=== PATIENT | female | born 1965 | race Caucasian/White ===

== ENCOUNTER 2019-01-02 13:06 | Emergency (ER) | payer MEDICAID, SELFPAY ==
[2019-01-02 13:07] VITALS: BP 146/81; PULSE 74; RESP 18; TEMP 36.8; O2SAT 98; BMI 29.8
--- NOTE | 2019-01-02 13:35 | RAD_ITS ---
STUDY: X-RAY - LEFT KNEE REASON FOR EXAM: Pain, fall. TECHNIQUE: 4 view(s) of the knee. COMPARISON: None. FINDINGS: Normal visualized distal femur. Normal visualized proximal tibia and fibula. Normal proximal tibiofibular articulation. There is mild joint space narrowing of the medial femorotibial compartment. Normal lateral femorotibial compartment. Normal patellofemoral articulation. There is a small enthesophyte at the superior pole of the patellofemoral. RAD/Knee 4 or More Views IMPRESSION: Mild arthrosis of the medial femorotibial compartment. No demonstrated fracture. Electronically Signed: Hunter Rasmussen MD at 14:20 EDT Tel , Service support ,
[2019-01-02] MEDS: HYDROcodone Bitartrate/Apap 5/325 Tablet PO (13:39)
--- NOTE | 2019-01-02 14:30 | ED.VISSUMM ---
- ER Visit Summary Date of Service: 01/02/19 Chief Complaint: Left knee pain History of Present Illness: The patient is a [address] Vargas. She reports that yesterday while getting out of a truck she slipped and injured her left knee. States that she did hit it on the ground, but not hard. However, she did twisted awkwardly. Reports that she has a sharp pain with movement and a dull constant pain. Is 10 to 10 hours and 6 out of 10 currently. Is worsened by bending her knee and relieved by straightening it out. She denies any other injuries. No blow to the head or loss of consciousness. Physical Examination: Vitals: Stable. Afebrile. Neck: No vertebral tenderness. Full ROM without difficulty. Cleared by NEXUS criteria. Back: No vertebral tenderness. General: A&O x 3. NAD. Cardiovascular exam: Regular rate and rhythm, no murmur, rub or gallop. Respiratory exam: Chest nontender. No crepitus. Clear to auscultation bilaterally. No wheezes or stridor. Abdominal exam: Soft, nontender, nondistended, normal bowel sounds. No pain in RUQ or LUQ specifically. No peritoneal signs. Extremity: Left knee shows soft tissue swelling and moderate tenderness palpation over the medial tibial plateau. She has no pain or ligamentous instability with anterior/posterior drawer or medial/lateral stress. She does have a positive Siri with her foot deviated medially. Test Results: X-rays show joint effusion, but no fracture. Emergency Department Course and Treatment: Patient was treated with [place]. She is resting comfortably. Treatment Plan: Had a prolonged discussion with the patient that I suspect that she damaged her medial meniscus. She will be discharged with [place] and crutches. Instructed to follow-up Dr. Pal in 1 week if not improving. Return to the emergency department for any worsening symptoms. Disposition: To home in improved and stable condition. Impression: 1. Left knee pain, acute. This note was generated with [employer] dictation software. It may contain incorrect words, spelling, and punctuation that were not noted in review of the chart prior to signing ED Disposition - Plan for ED Patient: Disposition: Home or Assisted Living Instructions: ED Meniscal Injury Knee Poss Prescriptions: Hydrocodone Bitart/Apap 5-325 [[place] 5MG-325MG] 1 tablet PO Q6H PRN PRN 5 Days #20 tablet PRN Reason: Pain Referrals: Kandis Pal DO [STAFF PHYSICIAN] - 1 Week if not improving
--- NOTE | 2019-01-02 14:33 | ED.DCSUM_ITS ---
- ER Visit Summary Date of Service: 01/02/19 Chief Complaint: Left knee pain History of Present Illness: The patient is a [address] Vargas. She reports that yesterday while getting out of a truck she slipped and injured her left knee. States that she did hit it on the ground, but not hard. However, she did twisted awkwardly. Reports that she has a sharp pain with movement and a dull constant pain. Is 10 to 10 hours and 6 out of 10 currently. Is worsened by bending her knee and relieved by straightening it out. She denies any other injuries. No blow to the head or loss of consciousness. Physical Examination: Vitals: Stable. Afebrile. Neck: No vertebral tenderness. Full ROM without difficulty. Cleared by NEXUS criteria. Back: No vertebral tenderness. General: A&O x 3. NAD. Cardiovascular exam: Regular rate and rhythm, no murmur, rub or gallop. Respiratory exam: Chest nontender. No crepitus. Clear to auscultation bilaterally. No wheezes or stridor. Abdominal exam: Soft, nontender, nondistended, normal bowel sounds. No pain in RUQ or LUQ specifically. No peritoneal signs. Extremity: Left knee shows soft tissue swelling and moderate tenderness palpation over the medial tibial plateau. She has no pain or ligamentous instability with anterior/posterior drawer or medial/lateral stress. She does have a positive Siri with her foot deviated medially. Test Results: X-rays show joint effusion, but no fracture. Emergency Department Course and Treatment: Patient was treated with [place]. She is resting comfortably. Treatment Plan: Had a prolonged discussion with the patient that I suspect that she damaged her medial meniscus. She will be discharged with [place] and crutches. Instructed to follow-up Dr. Pal in 1 week if not improving. Return to the emergency department for any worsening symptoms. Disposition: To home in improved and stable condition. Impression: 1. Left knee pain, acute. This note was generated with [employer] dictation software. It may contain incorrect words, spelling, and punctuation that were not noted in review of the chart prior to signing ED Disposition - Plan for ED Patient: Disposition: Home or Assisted Living Instructions: ED Meniscal Injury Knee Poss Prescriptions: Hydrocodone Bitart/Apap 5-325 [[place] 5MG-325MG] 1 tablet PO Q6H PRN PRN 5 Days #20 tablet PRN Reason: Pain Referrals: Kandis Pal DO [STAFF PHYSICIAN] - 1 Week if not improving
== END 2019-01-02 15:02 | disposition home or self-care (01) ==
LOC: ED 14:39
PROVIDERS: Emergency Provider Emergency Medicine; Family Provider Family Medicine; PCP Family Medicine
DX: M25.562 Pain in left knee (principal); M25.462 Effusion, left knee; W01.0XXA Fall on same level from slipping, tripping and stumbling without subsequent striking against object, initial encounter; Y93.9 Activity, unspecified; Y92.9 Unspecified place or not applicable; J44.9 Chronic obstructive pulmonary disease, unspecified
CPT/HCPCS: 73564; 99284

== ENCOUNTER 2019-05-15 19:33 | Emergency (ER) | payer MEDICAID, SELFPAY ==
[2019-05-15 19:34] VITALS: BP 154/92; PULSE 90; RESP 16; TEMP 36.8; O2SAT 97; BMI 28.8
[2019-05-15 19:53] LABS: Mucous, Urine 0 SEEN /hpf (<or=2+)
[2019-05-15 19:56] LABS: Color, Urine Yellow (Yellow); Glucose, Dipstick Normal (Normal); Ketone-Dipstick 5 mg/dl (Negative); Leukocyte Esterase-Dipstick 500 /ul (Negative); Nitrite-Dipstick Positive (Negative); Occult Blood-Urine 250 /ul (Negative); Protein-Dipstick 30 mg/dl (Negative); Urine Bilirubin Dipstick Negative (Negative); Urine Clarity Sl. Cloudy (Clear); Urine Urobilinogen Normal (Normal)
[2019-05-15 20:06] LABS: Red Blood Cells-Urine 50-100 SEEN /hpf (0-5); Squamous Epithelial Cells - UA 0-5 SEEN /hpf (5-10); Transitional Epithelial - Ur 5-10 SEEN /hpf (0-5); White Blood Cells 50-100 SEEN /hpf (0-5)
[2019-05-15 20:07] LABS: Bacteria 2+ /hpf (None Seen)
[2019-05-15 22:13] VITALS: RESP 16
[2019-05-15 22:25] LABS: Absolute Lymphocyte Count 1.81 X10^3/uL (0.83-4.51); Absolute Neutrophil Count 3.8 X10^3/uL (2.0-7.7); Basophil# 0.09 X10^3/uL; Basophil% 1.4 % (0-1); Eosinophil# 0.12 X10^3/uL; Eosinophils% 1.9 % (0-5); Hemoglobin 12.2 g/dL (12.0-15.0); Lymphocyte # 1.81 X10^3/ul (4.0); Lymphocyte % 28.6 % (19-41); Mean Corp Hgb Conc 33.9 g/dL (32-36); Mean Corpuscular Hgb 30.4 pg (27.0-32.0); Mean Corpuscular Volume 89.8 fL (81-99); Mean Platelet Vol. 10.1 fl (6.2-12.0); Monocyte# 0.53 X10^3/uL; Monocyte% 8.4 % (0-10); NRBC Flagged by Analyzer 0 % (0-5); Neutrophil # 3.75 X10^3/uL (2.7-7.7); Neutrophil % 59.4 % (47-70); Platelet Count 260 K/mm3 (150-450); RBC Distribution Width CV 12.9 % (11.6-14.6); RBC Distribution Width SD 42.4 fl (35.1-43.9); Red Blood Count 4.01 M/mm3 (4.2-5.4); White Blood Count 6.3 K/mm3 (4.4-11.0)
[2019-05-15 22:38] LABS: ALB/GLOB Ratio 1.2 RATIO (0.9-2.4); AST(SGOT) 13 U/L (15-37); Alanine Aminotransfer ALT/SGPT 24 U/L (13-56); Albumin, Serum 3.6 g/dL (3.2-5.0); Alkaline Phosphatase 108 U/L (45-117); Anion Gap 7 (5-15); BUN 14 mg/dL (7-18); BUN/Creat Ratio 13.7 RATIO (10-20); Calcium,Total 8.9 mg/dL (8.5-10.1); Chloride 110 mmol/L (98-107); Creatinine, Serum 1.02 mg/dL (0.55-1.02); EST Glomerular Filtration Rate 60 mL/min (>60); Est Glom Filt Rate - Afr Amer 72 mL/min (>60); Estimated Creatinine Clearance 49.87 ml/min; Globulin 2.9 g/dL (2.2-4.2); Glucose 106 mg/dL (74-106); Lipase 66 U/L (73-393); Potassium 3.4 mmol/L (3.5-5.1); Protein, Total 6.5 g/dL (6.4-8.2); Sodium Level 143 mmol/L (136-145)
--- NOTE | 2019-05-15 23:19 | ED.DCSUM_ITS ---
- ER Visit Summary Date of Service: 05/15/19 Chief Complaint: Spasm with urination History of Present Illness: The patient is a 53 F with spasms in urination. Associated with nausea and feeling hot. She noticed some blood in her urine today. She has also had right upper quadrant pain for months. History of cholecystectomy. Denies any history of liver disease. Physical Examination: Afebrile and vital signs unremarkable. No acute distress. Alert and oriented. Heart regular. Lungs clear. Abdomen soft and nontender. Back is nontender. Skin appears normal. Test Results: Laboratory studies unremarkable except potassium 3.4, chloride 110, AST 13, lipase 66. Urinalysis shows signs of infection with hematuria. Cultures pending. Emergency Department Course and Treatment: Patient has bladder spasms with signs and symptoms of UTI. No flank pain. No history of kidney stones. I suspect she has a UTI with hematuria. Cultures pending. She was treated with Keflex. Regarding her ongoing right upper quadrant pain, work-up was unremarkable. She has a history of cholecystectomy. No indication for imaging emergently. She has follow-up with her PCP for this. She will also follow-up regarding the UTI to check for resolution. Treatment Plan: As above Disposition: Discharge Impression: 1. UTI with hematuria This note was generated with [employer] dictation software. It may contain incorrect words, spelling, and punctuation that were not noted in review of the chart prior to signing ED Disposition - Plan for ED Patient: Referrals: Judson Vargas MD [Primary Care Provider] -
--- NOTE | 2019-05-15 23:21 | ED.DEP ---
ED Disposition - Plan for ED Patient: Instructions: Understanding Urinary Tract Infections (UTIs) Prescriptions: Cephalexin [Keflex] 500 mg PO Q6 #40 cap Prescription Printed Referrals: Judson Vargas MD [Primary Care Provider] -
[2019-05-15 23:24] VITALS: RESP 16
[2019-05-15] MEDS: Cephalexin 250 MG Capsule 500 MG PO (23:26)
== END 2019-05-15 23:28 | disposition home or self-care (01) ==
PROVIDERS: Emergency Provider Emergency Medicine; Family Provider Family Medicine; PCP Family Medicine
DX: N39.0 Urinary tract infection, site not specified (principal); R31.9 Hematuria, unspecified
CPT/HCPCS: 80053; 81001; 83690; 85025; 87086; 87088; 99284; A4216

== ENCOUNTER → 2022-05-02 | Outpatient (CLI) | payer MEDICAID, SELFPAY ==
[2022-05-02 17:10] LABS: Absolute Lymphocyte Count 2.47 X10^3/uL (0.83-4.51); Absolute Neutrophil Count 3.3 X10^3/uL (2.0-7.7); Basophil# 0.09 X10^3/uL; Basophil% 1.3 % (0-1); Eosinophil# 0.21 X10^3/uL; Eosinophils% 3.1 % (0-5); Hematocrit 37.4 % (37-47); Hemoglobin 12.9 g/dL (12.0-15.0); Lymphocyte # 2.47 X10^3/ul (0.83-4.51); Mean Corp Hgb Conc 34.5 g/dL (32-36); Mean Corpuscular Hgb 31.5 pg (27.0-32.0); Mean Corpuscular Volume 91.2 fL (81-99); Mean Platelet Vol. 9.9 fl (6.2-12.0); Monocyte# 0.56 X10^3/uL; Monocyte% 8.4 % (0-10); NRBC Flagged by Analyzer 0 % (0-5); Neutrophil # 3.33 X10^3/uL (2.7-7.7); Neutrophil % 49.9 % (47-70); Platelet Count 309 K/mm3 (150-450); RBC Distribution Width CV 13.2 % (11.6-14.6); RBC Distribution Width SD 43.8 fl (35.1-43.9); White Blood Count 6.7 K/mm3 (4.4-11.0)
[2022-05-02 17:54] LABS: ALB/GLOB Ratio 1.2 RATIO (0.9-2.4); AST(SGOT) 15 U/L (15-37); Alanine Aminotransfer ALT/SGPT 31 U/L (13-56); Albumin, Serum 3.7 g/dL (3.2-5.0); Alkaline Phosphatase 107 U/L (45-117); Anion Gap 7 (5-15); BUN 11 mg/dL (7-18); BUN/Creat Ratio 11.9 RATIO (10-20); CPK Total, Creatine Kinase 97 U/L (26-192); Calcium,Total 8.7 mg/dL (8.5-10.1); Chloride 103 mmol/L (98-107); Creatinine, Serum 0.92 mg/dL (0.55-1.02); EST Glomerular Filtration Rate 66 mL/min (>60); Est Glom Filt Rate - Afr Amer 80 mL/min (>60); Globulin 3.2 g/dL (2.2-4.2); Glucose 99 mg/dL (74-106); Potassium 3.3 mmol/L (3.5-5.1); Protein, Total 6.9 g/dL (6.4-8.2); Sodium Level 139 mmol/L (136-145); Thyroid Stim Hormone (TSH) 0.96 uIU/mL (0.358-3.74); Troponin-I HS 4 pg/mL (3.0-54.0)
[2022-05-03 08:57] LABS: Hepatitis C Antibody Non-Reactive (Nonreactive); Vitamin D,25 Hydroxy 46.9 ng/mL
[2022-05-04 08:31] LABS: Myoglobin, Serum 29 ng/mL (25-58)
== END | disposition home or self-care (01) ==
LOC: POLAB3 16:44
PROVIDERS: PCP Family Medicine; Visit Provider Family Medicine Geriatric Medicine
DX: E55.9 Vitamin D deficiency, unspecified (principal); R07.9 Chest pain, unspecified; R53.83 Other fatigue; Z13.89 Encounter for screening for other disorder
CPT/HCPCS: 36415; 80053; 82306; 82550; 83874; 84443; 84484; 85025; 86803

== ENCOUNTER → 2022-05-25 | Outpatient (CLI) | payer MEDICAID, SELFPAY ==
[2022-05-25 10:40] LABS: Anion Gap 7 (5-15); BUN 14 mg/dL (7-18); BUN/Creat Ratio 13.5 RATIO (10-20); Chloride 106 mmol/L (98-107); Creatinine, Serum 1.04 mg/dL (0.55-1.02); EST Glomerular Filtration Rate 58 mL/min (>60); Est Glom Filt Rate - Afr Amer 70 mL/min (>60); Glucose 92 mg/dL (74-106); Potassium 3.7 mmol/L (3.5-5.1); Sodium Level 141 mmol/L (136-145)
== END | disposition home or self-care (01) ==
LOC: LAB 09:14
PROVIDERS: PCP Family Medicine Geriatric Medicine; Referring Provider Family Medicine Geriatric Medicine; Visit Provider Family Medicine Geriatric Medicine
DX: E87.6 Hypokalemia (principal)
CPT/HCPCS: 36415; 80048

== ENCOUNTER → 2022-05-26 | Outpatient (CLI) | payer MEDICAID, SELFPAY ==
--- NOTE | 2022-05-26 12:35 | STRESSREP_ITS ---
Stress Test Report Indications: Abnormal EKG. Stress test modality: Exercise treadmill according to Clay protocol. Stress test findings: Baseline EKG showed normal sinus rhythm. Patient walked on the treadmill according to the Clay protocol for a total of5 minutes and 15 seconds achieving a workload of 7 METS. The resting heart rate was 52 bpm which quang to maximal heart rate of 139 bpm. This represented 85% of the maximal age-predicted heart rate. The resting blood pressure was 128/88 mmHg which quang to maximum blood pressure of 174/72 mmHg. The exercise was stopped due to heart rate being achieved and dyspnea. Stress EKG failed to show any acute ischemic changes. Nuclear protocol and findings: Patient was injected 11.6 mCi of may be at rest.33.1 mCi of Myoview were injected at peak exercise. SPECT images were obtained. Baseline imaging showed uniform tracer distribution. Post exercise, mild r eperfusion defect was noted in the inferior wall. Gated images showed normal left ventricular systolic function. Conclusions: 1. Normal stress EKG. 2. Nuclear imaging shows mild reversible ischemia in the inferior wall.
== END | disposition home or self-care (01) ==
LOC: CVS 06:36
PROVIDERS: PCP Family Medicine Geriatric Medicine; Referring Provider Family Medicine Geriatric Medicine; Visit Provider Family Medicine Geriatric Medicine
DX: R94.31 Abnormal electrocardiogram [ECG] [EKG] (principal); R06.00 Dyspnea, unspecified
CPT/HCPCS: 78452; 93017; A9500; A4216

== ENCOUNTER → 2022-06-03 | Outpatient (CLI) | payer MEDICAID, SELFPAY ==
--- NOTE | 2022-06-03 13:21 | CT_ITS ---
STUDY: LOW DOSE CT LUNG CANCER SCREENING REASON FOR EXAM: Female, 56 years old. HX OF NICOTINE DEPENDENCE. Former smoker. Patient smoked 2 packs per day for 40 years. RADIATION DOSAGE (If Supplied By Facility): CTDIvol = ( 3.02 ) mGy, DLP = ( 95.15 ) mGycm TECHNIQUE: No contrast was administered. Low dose technique was utilized (average mAS-38 and kVp 120). 1.25 mm axial source images with a slice interval of 1.25-mm were reconstructed in lung windows. 2.5 mm axial source images with a slice interval of 2.5-mm were reconstructed in lung windows. 5.0 mm axial source images with a slice interval of 5.0-mm were reconstructed in soft tissue windows. COMPARISON: None. NODULES: No suspicious nodules are seen. Emphysema: Minimal linear scarring in the posterior medial aspect of the left lung apex. Mild degree of emphysematous changes. Minimal increased linear markings in the lingular segment of the left upper lobe. Endobronchial lesion: None Aorta: Mild degree of atherosclerotic calcific plaques of the aortic arch. CORONARY ARTERIES: Coronary artery calcification is seen. Heart: Unremarkable Pulmonary artery: Unremarkable Mediastinal nodes: Calcified right hilar lymph nodes and precarinal and subcarinal lymph nodes. Other chest and abdominal findings: CT/Low Dose CT Lung Screening IMPRESSION: Lung-RADS category 2 - Continue annual screening with LDCT in 12 months. IMPORTANT NOTES FOR USE: ACR Lung-RADS Version 1.1 Assessment Categories Release Date: 2018 Category: Coded 0-4 bases on nodule(s) with highest degree of suspicion. Negative screen is defined as categories 1 and 2; a positive screen is defined as categories 3 and 4. Category 3 and 4A nodules that are unchanged on interval CT should be coded as category 2, and individuals returned to screening in 12 months. Category 4X: Category 3 or 4 nodules with additional imaging findings that increase the suspicion of lung cancer, such as spiculation, GGN that doubles in size in 1 year, enlarged lymph notes, etc. Category Modifiers: S (significant finding unrelated to lung cancer) Electronically Signed: Óscar Edwards MD at 14:16 EDT ,
--- NOTE | 2022-06-03 13:34 | BI_ITS ---
MAMMOGRAPHY - BILATERAL SCREENING REASON FOR EXAM: Female, 56 years old. Routine annual screening examination. PERTINENT HISTORY: Non-contributory. TECHNIQUE: Digital bilateral breast lissa (3D mammographic acquisition) in the CC and MLO projections. 2-D mediolateral oblique (MLO) and craniocaudad (CC) views of both breasts were obtained. CAD: Full Field Digital Mammography with Computer Added Detection was performed. COMPARISON: Comparison is made with prior outside examination dated 09/16/2019. FINDINGS: Breast Composition: The breasts are heterogeneously dense, which may obscure small masses. There are no dominant masses or suspicious calcifications. Stable small benign-appearing bilateral axillary lymph nodes. No other significant abnormalities are identified. There has been no significant change since the prior study. BI/SCRN MAMM (CAD)W/LISSA BILAT IMPRESSION: Stable bilateral screening mammogram. Yearly follow-up mammogram recommended. (A) ASSESSMENT CATEGORY: BIRADS Category 2: Benign. A letter regarding these results will be sent to the patient by the facility within 30 days. Approximately 10% of breast cancers are not detected by mammography. A normal mammogram should not delay biopsy of a clinically suspicious abnormality. [id number] Electronically Signed: Óscar Edwards MD at 14:38 EDT ,
== END | disposition home or self-care (01) ==
LOC: OPBI 13:19
PROVIDERS: PCP Family Medicine Geriatric Medicine; Referring Provider Family Medicine Geriatric Medicine; Visit Provider Family Medicine Geriatric Medicine
DX: Z12.31 Encounter for screening mammogram for malignant neoplasm of breast (principal); Z87.891 Personal history of nicotine dependence
CPT/HCPCS: 71271; 77063; 77067

== ENCOUNTER → 2022-08-01 | Outpatient (CLI) | payer MEDICAID, SELFPAY ==
[2022-08-01 13:21] LABS: Absolute Lymphocyte Count 2.47 X10^3/uL (0.83-4.51); Absolute Neutrophil Count 4.3 X10^3/uL (2.0-7.7); Basophil# 0.08 X10^3/uL; Eosinophil# 0.37 X10^3/uL; Eosinophils% 4.8 % (0-5); Hematocrit 42.8 % (37-47); Lymphocyte # 2.47 X10^3/ul (0.83-4.51); Lymphocyte % 31.8 % (19-41); Mean Corp Hgb Conc 32.7 g/dL (32-36); Mean Corpuscular Volume 94.9 fL (81-99); Mean Platelet Vol. 10.1 fl (6.2-12.0); Monocyte# 0.51 X10^3/uL; Monocyte% 6.6 % (0-10); NRBC Flagged by Analyzer 0 % (0-5); Neutrophil # 4.29 X10^3/uL (2.7-7.7); Neutrophil % 55.2 % (47-70); Platelet Count 360 K/mm3 (150-450); RBC Distribution Width CV 13.5 % (11.6-14.6); Red Blood Count 4.51 M/mm3 (4.2-5.4); White Blood Count 7.8 K/mm3 (4.4-11.0)
[2022-08-01 13:55] LABS: ALB/GLOB Ratio 1.1 RATIO (0.9-2.4); AST(SGOT) 21 U/L (15-37); Alanine Aminotransfer ALT/SGPT 35 U/L (13-56); Albumin, Serum 3.9 g/dL (3.2-5.0); Alkaline Phosphatase 143 U/L (45-117); Anion Gap 7 (5-15); BUN 13 mg/dL (7-18); BUN/Creat Ratio 12.3 RATIO (10-20); Calcium,Total 9.3 mg/dL (8.5-10.1); Chloride 102 mmol/L (98-107); Creatinine, Serum 1.06 mg/dL (0.55-1.02); EST Glomerular Filtration Rate 57 mL/min (>60); Est Glom Filt Rate - Afr Amer 68 mL/min (>60); Globulin 3.4 g/dL (2.2-4.2); Glucose 90 mg/dL (74-106); Potassium 3.7 mmol/L (3.5-5.1); Protein, Total 7.3 g/dL (6.4-8.2); Sodium Level 138 mmol/L (136-145); Thyroid Stim Hormone (TSH) 6.78 uIU/mL (0.358-3.74)
== END | disposition home or self-care (01) ==
LOC: POLAB3 09:15
PROVIDERS: PCP Family Medicine Geriatric Medicine; Visit Provider Family Medicine Geriatric Medicine
DX: R53.83 Other fatigue (principal); E11.65 Type 2 diabetes mellitus with hyperglycemia
CPT/HCPCS: 36415; 80053; 84443; 85025

== ENCOUNTER → 2022-10-06 | Outpatient (CLI) | payer MEDICAID, SELFPAY ==
[2022-10-06 12:48] LABS: Absolute Lymphocyte Count 2.21 X10^3/uL (0.83-4.51); Absolute Neutrophil Count 3.6 X10^3/uL (2.0-7.7); Basophil# 0.11 X10^3/uL; Basophil% 1.6 % (0-1); Hematocrit 40.1 % (37-47); Hemoglobin 13.6 g/dL (12.0-15.0); Lymphocyte # 2.21 X10^3/ul (0.83-4.51); Lymphocyte % 32.9 % (19-41); Mean Corp Hgb Conc 33.9 g/dL (32-36); Mean Corpuscular Hgb 31.1 pg (27.0-32.0); Mean Corpuscular Volume 91.8 fL (81-99); Mean Platelet Vol. 10.2 fl (6.2-12.0); Monocyte# 0.62 X10^3/uL; Monocyte% 9.2 % (0-10); NRBC Flagged by Analyzer 0 % (0-5); Neutrophil # 3.55 X10^3/uL (2.7-7.7); Neutrophil % 52.9 % (47-70); Platelet Count 330 K/mm3 (150-450); RBC Distribution Width CV 12.4 % (11.6-14.6); RBC Distribution Width SD 41.4 fl (35.1-43.9); Red Blood Count 4.37 M/mm3 (4.2-5.4); White Blood Count 6.7 K/mm3 (4.4-11.0)
--- NOTE | 2022-10-06 12:52 | RAD_ITS ---
STUDY: X-RAY - ABDOMEN/PELVIS REASON FOR EXAM: Female, 57 years old. FECAL IMPACTION TECHNIQUE: Frontal views COMPARISON: None. FINDINGS: Normal visualized lung bases. There is an unremarkable bowel gas pattern. Mild fecal retention. There is no demonstrated free abdominal air. Surgical clips in the right upper quadrant. Normal soft tissue structures. Normal visualized osseous structures. RAD/Abd Inc Decub and/or Erect IMPRESSION: Mild fecal retention. Electronically Signed: Yasmany Carson DO at 22:47 EST ,
[2022-10-06 13:55] LABS: ALB/GLOB Ratio 1.2 RATIO (0.9-2.4); AST(SGOT) 15 U/L (15-37); Alanine Aminotransfer ALT/SGPT 28 U/L (13-56); Albumin, Serum 3.9 g/dL (3.2-5.0); Alkaline Phosphatase 106 U/L (45-117); Anion Gap 6 (5-15); BUN 14 mg/dL (7-18); BUN/Creat Ratio 13.3 RATIO (10-20); Calcium,Total 9.2 mg/dL (8.5-10.1); Chloride 104 mmol/L (98-107); Creatinine, Serum 1.05 mg/dL (0.55-1.02); EST Glomerular Filtration Rate 57 mL/min (>60); Est Glom Filt Rate - Afr Amer 69 mL/min (>60); Globulin 3.3 g/dL (2.2-4.2); Glucose 89 mg/dL (74-106); Potassium 4.4 mmol/L (3.5-5.1); Protein, Total 7.2 g/dL (6.4-8.2); Sodium Level 138 mmol/L (136-145); Thyroid Stim Hormone (TSH) 0.19 uIU/mL (0.358-3.74)
== END | disposition home or self-care (01) ==
PROVIDERS: PCP Family Medicine Geriatric Medicine; Visit Provider Family Medicine Geriatric Medicine
DX: N39.0 Urinary tract infection, site not specified (principal); K56.41 Fecal impaction; R10.9 Unspecified abdominal pain; E03.9 Hypothyroidism, unspecified
CPT/HCPCS: 36415; 74019; 80053; 84443; 85025; 87086; 87088

== ENCOUNTER → 2022-10-20 | Outpatient (CLI) | payer MEDICAID, SELFPAY ==
--- NOTE | 2022-10-20 09:31 | US_ITS ---
STUDY: ABDOMINAL ULTRASOUND - RIGHT UPPER QUADRANT REASON FOR VISIT: Female, 57 years old RUQ PAIN and vomiting. TECHNIQUE: Ultrasound evaluation of the right upper quadrant was performed with real-time and static andres-scale imaging. TECHNICAL QUALITY: Adequate. COMPARISON: None. FINDINGS: Liver: The liver is enlarged and measures 18.8 cm. There is increased echogenicity consistent with fatty infiltration. The bile ducts are within normal limits. There is hepatic color flow. The direction of portal flow is hepatopetal. There is no demonstrated mass lesion. Gallbladder: The patient is status post cholecystectomy. Common Bile Duct (C.B.D.): The common bile duct measures 8 mm. Pancreas: Normal size of the head, body and tail of the pancreas. There is increased echogenicity of the pancreas. There is no demonstrated pancreatic mass or cyst. Right Kidney: Normal size of the right kidney. The right kidney measures 9 cm x 5.6 cm x 4.1 cm. Normal renal cortex. The right cortex measures 1.2 cm. There is no demonstrated renal mass or cyst. There is no right hydronephrosis. US/Abdomen Limited IMPRESSION: Mild hepatomegaly and fatty infiltration the liver. The patient is status post cholecystectomy. Electronically Signed: Óscar Edwards MD at 10:40 EST ,
== END | disposition home or self-care (01) ==
LOC: US 09:25
PROVIDERS: PCP Family Medicine Geriatric Medicine; Referring Provider Family Medicine Geriatric Medicine; Visit Provider Family Medicine Geriatric Medicine
DX: R10.9 Unspecified abdominal pain (principal)
CPT/HCPCS: 76705

== ENCOUNTER → 2022-11-25 | Outpatient (CLI) | payer MEDICAID, SELFPAY ==
--- NOTE | 2022-11-25 08:52 | US_ITS ---
STUDY: ABDOMINAL ULTRASOUND - ELASTOGRAPHY REASON FOR VISIT: Female, 57 years old. Fatty infiltration of the liver. TECHNIQUE: Liver stiffness measurements were obtained on a [employer] RS 85 ultrasound machine using a CA 1-7 probe following the SRU guidelines. 3 measurements were obtained using a 2-D-SWE method. TheIQR/M was 20 % suggesting a quality data set. TECHNICAL QUALITY: Adequate. COMPARISON: Comparison is made with prior study dated October 20, 2022. FINDINGS: Liver: Hepatomegaly. Fatty infiltration of the liver. Median liver stiffness measured 6.2 kPa. US/Elastography Parenchyma/Organ IMPRESSION: Liver stiffness measures 6.2 kPa compatible with F2-F3 (Mild to moderate liver fibrosis) Metavir score. Electronically Signed: Óscar Edwards MD at 16:00 EDT ,
== END | disposition home or self-care (01) ==
LOC: US 08:49
PROVIDERS: PCP Family Medicine Geriatric Medicine; Referring Provider Family Medicine Geriatric Medicine; Visit Provider Family Medicine Geriatric Medicine
DX: K76.0 Fatty (change of) liver, not elsewhere classified (principal)
CPT/HCPCS: 76981

== ENCOUNTER → 2023-06-14 | Outpatient (CLI) | payer MEDICAID, SELFPAY ==
[2023-06-14 14:56] LABS: Absolute Neutrophil Count 4.5 X10^3/uL (2.0-7.7); Basophil# 0.13 X10^3/uL; Basophil% 1.6 % (0-1); Eosinophil# 0.24 X10^3/uL; Eosinophils% 2.9 % (0-5); Hematocrit 41.1 % (37-47); Hemoglobin 13.5 g/dL (12.0-15.0); Mean Corp Hgb Conc 32.8 g/dL (32-36); Mean Corpuscular Hgb 31.1 pg (27.0-32.0); Mean Corpuscular Volume 94.7 fL (81-99); Monocyte# 0.57 X10^3/uL; Monocyte% 6.9 % (0-10); NRBC Flagged by Analyzer 0 % (0-5); Neutrophil # 4.45 X10^3/uL (2.7-7.7); Neutrophil % 54.1 % (47-70); Platelet Count 344 K/mm3 (150-450); RBC Distribution Width SD 45.1 fl (35.1-43.9); Red Blood Count 4.34 M/mm3 (4.2-5.4); White Blood Count 8.2 K/mm3 (4.4-11.0)
[2023-06-14 15:15] LABS: Hemoglobin A1c 5.6 % (3.8-5.6)
[2023-06-14 16:41] LABS: ALB/GLOB Ratio 1.2 RATIO (0.9-2.4); AST(SGOT) 14 U/L (15-37); Alanine Aminotransfer ALT/SGPT 29 U/L (13-56); Albumin, Serum 3.8 g/dL (3.2-5.0); Alkaline Phosphatase 123 U/L (45-117); Anion Gap 4 (5-15); BUN 9 mg/dL (7-18); BUN/Creat Ratio 9.2 RATIO (10-20); Chloride 105 mmol/L (98-107); Cholesterol 179 mg/dL (200); Creatinine, Serum 0.97 mg/dL (0.55-1.02); EST Glomerular Filtration Rate 62 mL/min (>60); Est Glom Filt Rate - Afr Amer 75 mL/min (>60); Globulin 3.1 g/dL (2.2-4.2); Glucose 106 mg/dL (74-106); High Density Lipoprotein 48 mg/dL; Potassium 4.1 mmol/L (3.5-5.1); Protein, Total 6.9 g/dL (6.4-8.2); Sodium Level 138 mmol/L (136-145); Thyroid Stim Hormone (TSH) 3.72 uIU/mL (0.358-3.74); Triglycerides 130 mg/dL; Very Low Density Lipoprotein 26 mg/dL (5-40)
[2023-06-14 17:06] LABS: Microalbumin,Random Urine < 5.0 mg/L (NO RANGE EST.)
== END | disposition home or self-care (01) ==
LOC: POLAB3 14:40
PROVIDERS: PCP Family Medicine Geriatric Medicine; Visit Provider Family Medicine Geriatric Medicine
DX: E11.65 Type 2 diabetes mellitus with hyperglycemia (principal); R53.83 Other fatigue
CPT/HCPCS: 36415; 80053; 80061; 82043; 83036; 84443; 85025

== ENCOUNTER → 2023-07-26 | Outpatient (CLI) | payer MEDICAID, SELFPAY ==
--- NOTE | 2023-07-26 09:19 | US_ITS ---
EXAM: US ABDOMEN LIMITED, RIGHT UPPER QUADRANT CLINICAL INDICATION: FATTY LIVER TECHNIQUE: Real-time ultrasound of the right upper quadrant with image documentation. COMPARISON: No relevant prior studies available. FINDINGS: LIVER: Liver measures 20.6 cm. Liver is echogenic. No intrahepatic biliary ductal dilation. GALLBLADDER: Patient status post cholecystectomy. COMMON BILE DUCT: Common bile duct measures 7 mm. The proximal common bile duct is within normal limits for the patient''s age. PANCREAS: Unremarkable as visualized. No focal abnormality is demonstrated in the pancreas. No pancreatic ductal dilatation. RIGHT KIDNEY: Right kidney measures 9.2 x 5.1 x 5.3 cm. The right renal cortex measures 1.3 cm. There is no hydronephrosis. No shadowing calculus. No focal lesion or perinephric collection is demonstrated. US/Abdomen Limited IMPRESSION: Status post cholecystectomy. There is hepatomegaly. There is fatty infiltration of the liver. Electronically Signed: Javier Barr MD at 21:51 EST ,
== END | disposition home or self-care (01) ==
LOC: US 09:17
PROVIDERS: PCP Family Medicine Geriatric Medicine; Referring Provider Family Medicine Geriatric Medicine; Visit Provider Family Medicine Geriatric Medicine
DX: K76.0 Fatty (change of) liver, not elsewhere classified (principal)
CPT/HCPCS: 76705

== ENCOUNTER → 2023-11-22 | Outpatient (CLI) | payer MEDICAID, SELFPAY ==
--- NOTE | 2023-11-22 08:39 | US_ITS ---
STUDY: ABDOMINAL ULTRASOUND - RIGHT UPPER QUADRANT; ELASTOGRAPHY REASON FOR VISIT: Female, 58 years old. Fatty infiltration of the liver. TECHNIQUE: Ultrasound evaluation of the right upper quadrant was performed with real-time and static andres-scale imaging. Point quantification shear wave elastography was performed ([employer]). TECHNICAL QUALITY: Adequate. COMPARISON: Comparison is made with prior study dated July 26, 2023. FINDINGS: Liver: The liver is enlarged and measures 19 cm. There is increased echogenicity consistent with fatty infiltration. The bile ducts are within normal limits. There is hepatic color flow. The direction of portal flow is hepatopetal. There is no demonstrated mass lesion. Median liver stiffness measured 6.4 kPa. Gallbladder: The patient is status post cholecystectomy. Common Bile Duct (C.B.D.): The common bile duct measures 5.9 mm. Pancreas: There is normal echogenicity of the visualized pancreas. There is no demonstrated pancreatic mass or cyst. Right Kidney: Normal size of the right kidney. The right kidney measures 9.5 cm x 5 cm x 4.8 cm. Normal renal cortex. The right cortex measures 1.0 cm. There is no demonstrated renal mass or cyst. There is no right hydronephrosis. US/ABD Limited w/ Elastography IMPRESSION: 1. Liver stiffness measures 6.4 kPa compatible with F2-F3 (Mild to moderate liver fibrosis) Metavir score. Electronically Signed: Óscar Edwards MD at 12:42 EDT ,
--- NOTE | 2023-11-22 09:36 | BI_ITS ---
MAMMOGRAPHY - BILATERAL SCREENING REASON FOR EXAM: Female, 58 years old. Routine annual screening examination. PERTINENT HISTORY: Non-contributory. TECHNIQUE: Digital bilateral breast lissa (3D mammographic acquisition) in the CC and MLO projections. 2-D mediolateral oblique (MLO) and craniocaudad (CC) views of both breasts were obtained. CAD: Full Field Digital Mammography with Computer Added Detection was performed. COMPARISON: Comparison is made with prior study June 03, 2022. FINDINGS: Breast Composition: The breasts are heterogeneously dense, which may obscure small masses. There are no dominant masses or suspicious calcifications. Stable benign-appearing bilateral axillary lymph nodes. No other significant abnormalities are identified. There has been no significant change since the prior study. BI/SCRN MAMM (CAD)W/LISSA BILAT IMPRESSION: Stable bilateral screening mammogram. Yearly follow-up mammogram recommended. (A) ASSESSMENT CATEGORY: BIRADS Category 2: Benign. A letter regarding these results will be sent to the patient by the facility within 30 days. Approximately 10% of breast cancers are not detected by mammography. A normal mammogram should not delay biopsy of a clinically suspicious abnormality. [id number] Electronically Signed: Óscar Edwards MD at 10:44 EDT ,
== END | disposition home or self-care (01) ==
LOC: US 08:37
PROVIDERS: PCP Family Medicine Geriatric Medicine; Referring Provider Family Medicine Geriatric Medicine; Visit Provider Family Medicine Geriatric Medicine
DX: Z12.31 Encounter for screening mammogram for malignant neoplasm of breast (principal); K76.0 Fatty (change of) liver, not elsewhere classified
CPT/HCPCS: 76705; 76981; 77063; 77067

== ENCOUNTER → 2023-11-29 | Outpatient (CLI) | payer MEDICAID, SELFPAY ==
[2023-11-30 19:07] LABS: H.Pylori Breath Test Negative (Negative)
== END | disposition home or self-care (01) ==
LOC: POLAB3 09:39
PROVIDERS: PCP Family Medicine Geriatric Medicine; Visit Provider Family Medicine Geriatric Medicine
DX: K25.9 Gastric ulcer, unspecified as acute or chronic, without hemorrhage or perforation (principal)
CPT/HCPCS: 36415; 83013

== ENCOUNTER 2023-12-11 06:53 | Day surgery (SDC) | payer MEDICAID, SELFPAY ==
--- NOTE | 2023-12-11 | ESO_PTH ---
[id number] LOC: [facility] U#:[id number] AGE/SX: 58/F ROOM: RE12/11/[address]: Dr. Tanner Wang DO : 1965 BED: DIS: 12/11/2023 SPEC #: [id number] RECD: 12/11/23 13:00 STATUS: TABBY DAVID #: [id number] ARTURO: 12/11/23 00:[address]: Tanner Wang DEPT: SURGICAL PATHOLOGY RECD BY: Alon Harvey ENTERED: 12/11/23 13:01 SP TYPE: MAYI SANTOS DR: Dr. Efrain Becerra MD Tissues: A - Esophagus, NOS B - Duodenum, NOS C - Transverse colon D - SPLENIC FLEXURE E - Sigmoid colon biopsy F - Rectum, NOS Procedures: Surgery Specimen Level IV HEADER OPERATION: Colonoscopy, polypectomy and biopsy, EGD PRE-OP DIAGNOSIS: Chronic idiopathic constipation, Vomiting, GERD, NFLAD, Dysphagia TISSUE SUBMITTED: A- Distal esophagus biopsy, B- Duodenum biopsy, C- Transverse colon polyp, D- Splenic flexure polyp, E- Sigmoid polyp, F- Rectum biopsy MICROSCOPIC DIAGNOSIS A. Distal esophagus, biopsy: Fragments of gastroesophageal mucosa with chronic inflammation. Intestinal metaplasia (goblet cell metaplasia) not identified. B. Duodenum, biopsy: Fragments of duodenal mucosa, no pathologic diagnosis. C. Transverse colon polyp, polypectomy: Tubular adenoma. D. Splenic flexure polyp, polypectomy: Fragments of tubular adenoma. E. Sigmoid polyp, polypectomy: Fragments of tubular adenoma. F. Rectum, biopsy: Fragments of colonic mucosa, no pathologic diagnosis. CARMEL/ 12/12/23 COMMENT Alcian blue/PAS stain with matched control is used in the evaluation of the specimen. MICROSCOPIC DESCRIPTION Slides are reviewed. GROSS DESCRIPTION A. Received in fixative is one container labeled with the patient's name and designated Distal esophagus biopsy. The specimen consists of multiple irregular fragments of light raymond soft tissue that in aggregate measure 1.0 x 0.5 x 0.1 cm. The specimen is totally submitted in one cassette. B. Received in fixative is one container labeled with the patient's name and designated Duodenum biopsy. The specimen consists of multiple irregular fragments of light raymond soft tissue that in aggregate measure 0.6 x 0.2 x 0.1 cm. The specimen is totally submitted in one cassette. C. Received in fixative is one container labeled with the patient's name and designated Transverse colon polyp. The specimen consists of one irregular fragment of light raymond soft tissue that measures 0.6 x 0.2 x 0.1 cm. The specimen is totally submitted in one cassette. D. Received in fixative is one container labeled with the patient's name and designated Splenic flexure polyp. The specimen consists of two irregular fragments of light raymond soft tissue that in aggregate measure 0.7 x 0.5 x 0.1 cm. The specimen is totally submitted in one cassette. E. Received in fixative is one container labeled with the patient's name and designated Sigmoid polyp. The specimen consists of two irregular fragments of light raymond soft tissue that in aggregate measure 0.6 x 0.5 x 0.1 cm. The specimen is totally submitted in one cassette. F. Received in fixative is one container labeled with the patient's name and designated Rectum biopsy. The specimen consists of two irregular fragment of light raymond soft tissue that measure in aggregate 0.5 x 0.5 x 0.1 cm. The specimen is totally submitted in one cassette. ESPERANZA/ 12/11/23 TC:1 CPT:[id number]
[2023-12-11] MEDS: Lactated Ringers 1,000 ML 15 ML IV (07:22)
[2023-12-11 07:23] VITALS: BP 123/70; PULSE 65; RESP 16; TEMP 36.2; O2SAT 96; BMI 31.0
--- NOTE | 2023-12-11 08:11 | PCM.HP.BLA ---
History and Physical Date of Admission: 12/11/23 Vomiting during BM, dysphagia Details: ROME DIAZ, is a 57 F who presents to the office today to establish with GI for vomiting during BM. Started several years ago. Same thing happens to her sister. No vomiting at other times. Can have a lower abd pain that is relieved with BM. Many years hx of dysphagia, food gets stuck, can't swallow bigger pills, treated with SL nitroglycerin previously. Pantoprazole controls any reflux. Has been told she has a large hiatal hernia. Had an EGD yrs ago that was a traumatic experience since she was awake and it was painful. Lifelong constipation (although she doesn't label it constipation since it's normal for her)--has BM every 7-14 days. Can be diarrhea following a hard formed stool. No melena or hematochezia. Colonoscopy approx 5 yrs ago, polyp, at [facility]. Hx fatty liver. Quit smoking 5 yrs ago, has gained about 40 pounds since then. ROS Const Constitutional: Positive for fatigue, weakness and weight change ENT ENT: Positive for difficulty swallowing Cardio Cardiology: Positive for leg pain with exertion Gastro GI: Positive for abdominal pain, change in bowel habits, diarrhea, heartburn, difficulty swallowing, excessive flatus, nausea/dyspepsia and vomiting; No belching, change in stool character, coffee ground emesis, constipation, cramping, feeling full early, incontinent of stools, Vomiting blood/hematemesis, Blood in stool, loose stools, Black,tarry stools, pain with swallowing or other Musc Musculoskeletal: Positive for back pain, muscle weakness, numbness, tingling and leg pain with exertion; No joint pain Skin Skin: No yellowing of the eye or itchy eyes Neuro Neurology: Positive for weakness, numbness and tingling Psych Psychiatric: Positive for anxiety and No depression Endo Endocrine: Positive for fatigue and weight change Aller/Imm Allergy/Immunologic: No itchy eyes Josse/Lymp Hematologic/Lymphatic: No easy bleeding or easy bruising Exam Const General: cooperative, comfortable and no acute distress Nutritional Appearance: overweight Orientation: alert, awake and oriented x3 HENMT Head: normal to inspection Eyes Sclera: sclerae normal Resp Effort & Inspection: normal respiratory effort GI Inspection: normal to inspection Palpation: soft, no hepatosplenomegaly, no masses and nontender Skin General: no rashes or lesions noted Neuro Gait: normal gait Psych Mood: congruent mood Quality Reporting Tobacco Screening ([facility] 138) Smoking Status: Former smoker Assessment and Plan Assessment and Plan (1) Chronic idiopathic constipation: Status: Chronic Plan: 57 yr old female with lifelong constipation, several years of vomiting during BM Rx amitiza 24 mcg bid, if causes diarrhea then will try another med, will look to see if treating the constipation will then prevent the vomiting Will get EGD and colonoscopy (2) Vomiting: Status: Acute Plan: Will treat CIC, get colonoscopy (3) GERD (gastroesophageal reflux disease): Status: Acute Plan: Continue PPI, get EGD (4) NAFLD (nonalcoholic fatty liver disease): Status: Acute Plan: Discussed her elastography result, 6 kPa therefore F1, weight loss will be best treatment (5) Dysphagia: Status: Acute Plan: EGD Consider manometry Previously treated with SL nitro Medications: New lubiprostone (Amitiza) 24 mcg PO BID 60 caps 5RF I have examined the patient and the H&P has been reviewed. There are no clinical changes since date of exam.
[2023-12-11 08:53] VITALS: BP 123/70; BP 145/89; PULSE 92; RESP 16; TEMP 36.1; O2SAT 100
[2023-12-11 08:55] VITALS: BP 123/70; BP 140/93; PULSE 90; RESP 18; O2SAT 100
--- NOTE | 2023-12-11 08:55 | OP.CCLET_ITS ---
12/11/2023 Efrain Becerra MD [address] [place] [address] Re : Upper GI endoscopy procedure for Flor Gonzalez Dear Dr. Becerra This procedure was performed on Monday, December 11, 2023. My impressions and recommendations are as follows: Impressions : - Benign-appearing esophageal stenosis. Dilated. - Esophageal mucosal changes suggestive of eosinophilic esophagitis. - Severe Schatzki ring. Dilated. - Small hiatal hernia. - Erythematous duodenopathy. Biopsied. - Biopsies were taken with a cold forceps for evaluation of eosinophilic esophagitis. Recommendations : - Discharge patient to home. - Resume previous diet. - Continue present medications. - Await pathology results. - Repeat upper endoscopy in 3 months for surveillance. My findings are described in the full procedure note, which is enclosed. If I can be of further assistance, please feel free to contact me at . Sincerely, Tanner Wang, 12/11/2023 8:55:17 AM This report has been signed electronically.
--- NOTE | 2023-12-11 08:55 | OP.EGD_ITS ---
Patient Name: Flor Gonzalez Procedure Date: 12/11/2023 8:08 AM Date of : 1965 Age: 58 Procedure: Upper GI endoscopy Indications: Dysphagia Providers: Tanner Wang DO Medicines: Monitored Anesthesia Care Patient Profile: This is a 58 year old female. Refer to note in patient chart for documentation of history and physical. Patient has symptoms of chronic dysphagia. Complications: No immediate complications. Procedure: Pre-Anesthesia Assessment: - Prior to the procedure, a History and Physical was performed, and patient medications and allergies were reviewed. The patient is competent. The risks and benefits of the procedure and the sedation options and risks were discussed with the patient. All questions were answered and informed consent was obtained. Patient identification and proposed procedure were verified by the physician in the pre-procedure area. Mental Status Examination: alert and oriented. Airway Examination: normal oropharyngeal airway and neck mobility. Respiratory Examination: clear to auscultation. CV Examination: normal. Prophylactic Antibiotics: The patient does not require prophylactic antibiotics. Prior Anticoagulants: The patient has taken no anticoagulant or antiplatelet agents. After reviewing the risks and benefits, the patient was deemed in satisfactory condition to undergo the procedure. The anesthesia plan was to use monitored anesthesia care (MAC). Immediately prior to administration of medications, the patient was re-assessed for adequacy to receive sedatives. The heart rate, respiratory rate, oxygen saturations, blood pressure, adequacy of pulmonary ventilation, and response to care were monitored throughout the procedure. The physical status of the patient was re-assessed after the procedure. After obtaining informed consent, the endoscope was passed under direct vision. Throughout the procedure, the patient's blood pressure, pulse, and oxygen saturations were monitored continuously. The Colonoscope was introduced through the mouth, and advanced to the second part of duodenum. The upper GI endoscopy was accomplished without difficulty. The patient tolerated the procedure well. Scope In: 8:21:39 AM Scope Out: 8:30:27 AM Total Procedure Duration Time 0 hours 8 minutes 48 seconds Findings: One benign-appearing, intrinsic moderate stenosis was found 20 to 23 cm from the incisors. This stenosis measured 4 cm (in length). The stenosis was traversed. A TTS dilator was passed through the scope. Dilation with a 12-13.5-15 mm balloon dilator was performed to 10 mm. The dilation site was examined and showed. Mucosal changes including ringed esophagus and small-caliber esophagus were found in the lower third of the esophagus. Biopsies were obtained from the proximal and distal esophagus with cold forceps for histology of suspected eosinophilic esophagitis. Verification of patient identification for the specimen was done. Estimated blood loss was minimal. A severe Schatzki ring was found in the lower third of the esophagus. A guidewire was placed and the scope was withdrawn. Dilation was performed with a Savary dilator with no resistance at 45 Fr. The dilation site was examined and showed mild mucosal disruption. Estimated blood loss was minimal. A small hiatal hernia was present. No other significant abnormalities were identified in a careful examination of the stomach. Mildly erythematous mucosa without active bleeding and with no stigmata of bleeding was found in the duodenal bulb. Biopsies were taken with a cold forceps for histology. Verification of patient identification for the specimen was done. Estimated blood loss was minimal. Impression: - Benign-appearing esophageal stenosis. Dilated. - Esophageal mucosal changes suggestive of eosinophilic esophagitis. - Severe Schatzki ring. Dilated. - Small hiatal hernia. - Erythematous duodenopathy. Biopsied. - Biopsies were taken with a cold forceps for evaluation of eosinophilic esophagitis. Recommendation: - Discharge patient to home. - Resume previous diet. - Continue present medications. - Await pathology results. - Repeat upper endoscopy in 3 months for surveillance. Procedure Code(s): --- Professional --- 05256, Esophagogastroduodenoscopy, flexible, transoral; with insertion of guide wire followed by passage of dilator(s) through esophagus over guide wire 69823, Esophagogastroduodenoscopy, flexible, transoral; with transendoscopic balloon dilation of esophagus (less than 30 mm diameter) 65293, 59,51, Esophagogastroduodenoscopy, flexible, transoral; with biopsy, single or multiple CPT copyright 2021 [employer]. All rights reserved. The codes documented in this report are preliminary and upon web marketing specialist review may be revised to meet current compliance requirements. Tanner Wang DO 12/11/2023 8:55:17 AM This report has been signed electronically. Number of Addenda: 0 Note Initiated On: 12/11/2023 8:08 AM
--- NOTE | 2023-12-11 08:58 | OP.COLON_ITS ---
Patient Name: Flor Gonzalez Procedure Date: 12/11/2023 8:30 AM Date of : 1965 Age: 58 Procedure: Colonoscopy Indications: Screening for colorectal malignant neoplasm Providers: Tanner Wang DO Medicines: Monitored Anesthesia Care Patient Profile: This is a 58 year old female. Refer to note in patient chart for documentation of history and physical. Patient has symptoms of chronic dysphagia. Last Colonoscopy: date unknown. Unable to locate last colonoscopy report. Complications: No immediate complications. Procedure: Pre-Anesthesia Assessment: - Prior to the procedure, a History and Physical was performed, and patient medications and allergies were reviewed. The patient is competent. The risks and benefits of the procedure and the sedation options and risks were discussed with the patient. All questions were answered and informed consent was obtained. Patient identification and proposed procedure were verified by the physician in the pre-procedure area. Mental Status Examination: alert and oriented. Airway Examination: normal oropharyngeal airway and neck mobility. Respiratory Examination: clear to auscultation. CV Examination: normal. Prophylactic Antibiotics: The patient does not require prophylactic antibiotics. Prior Anticoagulants: The patient has taken no anticoagulant or antiplatelet agents. After reviewing the risks and benefits, the patient was deemed in satisfactory condition to undergo the procedure. The anesthesia plan was to use monitored anesthesia care (MAC). Immediately prior to administration of medications, the patient was re-assessed for adequacy to receive sedatives. The heart rate, respiratory rate, oxygen saturations, blood pressure, adequacy of pulmonary ventilation, and response to care were monitored throughout the procedure. The physical status of the patient was re-assessed after the procedure. After I obtained informed consent, the scope was passed under direct vision. Throughout the procedure, the patient's blood pressure, pulse, and oxygen saturations were monitored continuously. The Colonoscope was introduced through the anus and advanced to the cecum, identified by appendiceal orifice and ileocecal valve. The ileocecal valve, appendiceal orifice, and rectum were photographed. Scope In: 8:32:46 AM Scope Withdrawal Time 0 hours 7 minutes 59 seconds Scope Out: 8:46:53 AM Total Procedure Duration Time 0 hours 14 minutes 7 seconds Findings: The perianal and digital rectal examinations were normal. Four sessile polyps were found in the sigmoid colon, splenic flexure and transverse colon. The polyps were 1 to 2 mm in size. These polyps were removed with a cold snare. Resection and retrieval were complete. Verification of patient identification for the specimen was done. Estimated blood loss was minimal. Localized mild inflammation characterized by erosions and erythema was found in the rectum and in the recto-sigmoid colon. Biopsies were taken with a cold forceps for histology. Multiple small-mouthed diverticula were found in the recto-sigmoid colon and sigmoid colon. Impression: - Four 1 to 2 mm polyps in the sigmoid colon, at the splenic flexure and in the transverse colon, removed with a cold snare. Resected and retrieved. - Localized mild inflammation was found in the rectum and in the recto-sigmoid colon secondary to colitis. Biopsied. - Diverticulosis in the recto-sigmoid colon and in the sigmoid colon. Recommendation: - Discharge patient to home. - Resume previous diet. - Continue present medications. - Await pathology results. - Repeat colonoscopy in 3 years for surveillance. Procedure Code(s): --- Professional --- 00549, Colonoscopy, flexible; with removal of tumor(s), polyp(s), or other lesion(s) by snare technique 15708, 59, Colonoscopy, flexible; with biopsy, single or multiple CPT copyright 2021 [employer]. All rights reserved. The codes documented in this report are preliminary and upon sales and marketing analyst review may be revised to meet current compliance requirements. Tanner Wang DO 12/11/2023 8:58:41 AM This report has been signed electronically. Number of Addenda: 0 Note Initiated On: 12/11/2023 8:30 AM
--- NOTE | 2023-12-11 08:58 | OP.CCLET_ITS ---
12/11/2023 Efrain Becerra MD [address] [place] [address] Re : Colonoscopy procedure for Flor Gonzalez Dear Dr. Becerra This procedure was performed on Monday, December 11, 2023. My impressions and recommendations are as follows: Impressions : - Four 1 to 2 mm polyps in the sigmoid colon, at the splenic flexure and in the transverse colon, removed with a cold snare. Resected and retrieved. - Localized mild inflammation was found in the rectum and in the recto-sigmoid colon secondary to colitis. Biopsied. - Diverticulosis in the recto-sigmoid colon and in the sigmoid colon. Recommendations : - Discharge patient to home. - Resume previous diet. - Continue present medications. - Await pathology results. - Repeat colonoscopy in 3 years for surveillance. My findings are described in the full procedure note, which is enclosed. If I can be of further assistance, please feel free to contact me at . Sincerely, Tanner Wang, 12/11/2023 8:58:41 AM This report has been signed electronically.
[2023-12-11 09:00] VITALS: BP 123/70; BP 136/77; PULSE 91; RESP 16; O2SAT 98
[2023-12-11 09:02] VITALS: BP 119/77; BP 123/70; PULSE 89; RESP 16; TEMP 36.1; O2SAT 100
[2023-12-11 09:26] VITALS: BP 123/70
== END 2023-12-11 09:34 | disposition home or self-care (01) ==
LOC: EN 06:53 → AC 06:54
PROVIDERS: PCP Family Medicine Geriatric Medicine; Referring Provider Family Medicine Geriatric Medicine; Visit Provider Internal Medicine Gastroenterology
PROC: 0DJD8ZZ Inspection of Lower Intestinal Tract, Via Natural or Artificial Opening Endoscopic (ICD-10-PCS; CPT 45378; principal; 2023-12-11 07:55)
DX: Z12.11 Encounter for screening for malignant neoplasm of colon (principal); J44.9 Chronic obstructive pulmonary disease, unspecified; K52.9 Noninfective gastroenteritis and colitis, unspecified; K22.2 Esophageal obstruction; R13.10 Dysphagia, unspecified; K57.30 Diverticulosis of large intestine without perforation or abscess without bleeding; K44.9 Diaphragmatic hernia without obstruction or gangrene; K59.04 Chronic idiopathic constipation; D12.5 Benign neoplasm of sigmoid colon; D12.3 Benign neoplasm of transverse colon; K31.89 Other diseases of stomach and duodenum; K21.00 Gastro-esophageal reflux disease with esophagitis, without bleeding; F41.9 Anxiety disorder, unspecified; F32.A Depression, unspecified; E07.9 Disorder of thyroid, unspecified; Z87.891 Personal history of nicotine dependence; Z79.899 Other long term (current) drug therapy
CPT/HCPCS: 45385; 45380; 43248; 43249; 43239; 88305; J7120; J2405

== ENCOUNTER → 2024-06-17 | Outpatient (CLI) | payer MEDICAID, SELFPAY ==
[2024-06-17 11:59] LABS: Absolute Lymphocyte Count 2.73 X10^3/uL (0.83-4.51); Absolute Neutrophil Count 4.8 X10^3/uL (2.0-7.7); Basophil% 1.2 % (0-1); Eosinophil# 0.29 X10^3/uL; Eosinophils% 3.4 % (0-5); Hematocrit 41.8 % (37-47); Hemoglobin 13.9 g/dL (12.0-15.0); Lymphocyte # 2.73 X10^3/ul (0.83-4.51); Lymphocyte % 31.6 % (19-41); Mean Corp Hgb Conc 33.3 g/dL (32-36); Mean Corpuscular Hgb 31.5 pg (27.0-32.0); Mean Corpuscular Volume 94.8 fL (81-99); Monocyte# 0.66 X10^3/uL; Monocyte% 7.6 % (0-10); NRBC Flagged by Analyzer 0 % (0-5); Neutrophil # 4.83 X10^3/uL (2.7-7.7); Neutrophil % 55.7 % (47-70); Platelet Count 334 K/mm3 (150-450); RBC Distribution Width CV 12.8 % (11.6-14.6); Red Blood Count 4.41 M/mm3 (4.2-5.4); White Blood Count 8.7 K/mm3 (4.4-11.0)
[2024-06-17 12:18] LABS: Microalbumin,Random Urine 8.6 mg/L (NO RANGE EST.)
[2024-06-17 13:12] LABS: Hemoglobin A1c 5.7 % (3.8-5.6)
[2024-06-17 13:45] LABS: ALB/GLOB Ratio 1.3 RATIO (0.9-2.4); AST(SGOT) 10 U/L (15-37); Alanine Aminotransfer ALT/SGPT 23 U/L (13-56); Albumin, Serum 3.9 g/dL (3.2-5.0); Alkaline Phosphatase 117 U/L (45-117); Anion Gap 7 (5-15); BUN 13 mg/dL (7-18); BUN/Creat Ratio 12.3 RATIO (10-20); Calcium,Total 9.2 mg/dL (8.5-10.1); Chloride 105 mmol/L (98-107); Cholesterol 149 mg/dL (200); Creatinine, Serum 1.06 mg/dL (0.55-1.02); EST Glomerular Filtration Rate 56 mL/min (>60); Est Glom Filt Rate - Afr Amer 68 mL/min (>60); Globulin 3.1 g/dL (2.2-4.2); Glucose 98 mg/dL (74-106); High Density Lipoprotein 48 mg/dL; Potassium 3.9 mmol/L (3.5-5.1); Sodium Level 139 mmol/L (136-145); Triglycerides 125 mg/dL; Very Low Density Lipoprotein 25 mg/dL (5-40)
== END | disposition home or self-care (01) ==
LOC: POLAB3 11:25
PROVIDERS: PCP Family Medicine Geriatric Medicine; Visit Provider Family Medicine Geriatric Medicine
DX: E78.5 Hyperlipidemia, unspecified (principal); E11.65 Type 2 diabetes mellitus with hyperglycemia; R53.83 Other fatigue
CPT/HCPCS: 36415; 80053; 80061; 82043; 83036; 84443; 85025

== ENCOUNTER → 2024-07-01 | Outpatient (CLI) | payer MEDICAID, SELFPAY ==
--- NOTE | 2024-07-01 10:08 | ART_ITS ---
Reason For Study: Pain in Lt Great Toe Procedure A bilateral lower extremity continuous wave Doppler with analog waveform analysis and ankle brachial indexes. Left Segmental Pressures Left brachial= 120mmHg. Left posterior tibial artery = 154mmHg. Left dorsalis pedis artery = 159mmHg. Left digit = 131 mmHg. Right Segmental Pressures Right brachial= 114mmHg. Right posterior tibial artery = 158mmHg. Right dorsalis pedis artery = 126mmHg. Right digit = 121 mmHg. Indices The right ankle brachial index by the posterior tibial artery is 1.32. The right ankle brachial index by the dorsalis pedis is 1.05. The right digital-brachial index is 1.01. The left ankle brachial index by the posterior tibial artery is 1.28. The left ankle brachial index by the dorsalis pedis is 1.33. The left digital-brachial index is 1.09. VL/Ankle Brachial Index Interpretation Summary Right JOSÉ 1.32, normal. TBI and Doppler/PVR waveforms of the right ankle normal at rest. Left JOSÉ 1.33, normal. TBI and Doppler/PVR waveforms of the left ankle normal a t rest. Ordering Physician: Efrain Becerra Chi Referring Physician: EFRAIN BECERRA CHI, MD Performed By: Sondra Gonzales RDCS/RVT
== END | disposition home or self-care (01) ==
LOC: CVS 10:04
PROVIDERS: PCP Family Medicine Geriatric Medicine; Referring Provider Family Medicine Geriatric Medicine; Visit Provider Family Medicine Geriatric Medicine
DX: M79.675 Pain in left toe(s) (principal)
CPT/HCPCS: 93922

== ENCOUNTER → 2024-10-04 | Outpatient (CLI) | payer MEDICAID, SELFPAY | END | disposition home or self-care (01) | LOC: LAB.FUTURE 10-07 07:37 | PROVIDERS: PCP Family Medicine Geriatric Medicine; Visit Provider Family Medicine Geriatric Medicine | DX: E03.9 Hypothyroidism, unspecified (principal) | CPT/HCPCS: 36415; 84443 ==

== ENCOUNTER → 2024-12-04 | Outpatient (CLI) | payer MEDICAID, SELFPAY ==
[2024-12-04 14:31] LABS: Absolute Neutrophil Count 3.7 X10^3/uL (2.0-7.7); Basophil% 1.4 % (0-1); Eosinophil# 0.16 X10^3/uL; Eosinophils% 2.3 % (0-5); Hematocrit 37.3 % (37-47); Hemoglobin 12.9 g/dL (12.0-15.0); Lymphocyte % 35.7 % (19-41); Mean Corp Hgb Conc 34.6 g/dL (32-36); Mean Corpuscular Hgb 31.5 pg (27.0-32.0); Mean Platelet Vol. 9.9 fl (6.2-12.0); Monocyte# 0.53 X10^3/uL; Monocyte% 7.6 % (0-10); NRBC Flagged by Analyzer 0 % (0-5); Neutrophil # 3.69 X10^3/uL (2.7-7.7); Neutrophil % 52.6 % (47-70); Platelet Count 323 K/mm3 (150-450); RBC Distribution Width CV 13.3 % (11.6-14.6); RBC Distribution Width SD 44.3 fl (35.1-43.9)
[2024-12-04 16:43] LABS: Cholesterol 126 mg/dL (<=200); High Density Lipoprotein 46 mg/dL; Low Density Lipoprotein Calc. 63 mg/dL; Triglycerides 87 mg/dL; Very Low Density Lipoprotein 17 mg/dL (5-40); cholesterol:hdl ratio screen 2.73
[2024-12-04 18:04] LABS: ALB/GLOB Ratio 1.9 RATIO (0.9-2.4); AST(SGOT) 16 U/L (<=31); Alanine Aminotransfer ALT/SGPT 17 U/L (<=34); Albumin, Serum 4.3 g/dL (3.4-4.8); Alkaline Phosphatase 128 U/L (35-104); Anion Gap 12 (5-15); BUN 12 mg/dL (4-19); BUN/Creat Ratio 12.4 RATIO (10-20); Calcium,Total 9.3 mg/dL (7.6-11.0); Carbon Dioxide 23.8 mmol/L (21.0-32.0); Chloride 102 mmol/L (98-108); Creatinine, Serum 0.93 mg/dL (0.70-1.20); EST Glomerular Filtration Rate 70 (>60); Globulin 2.3 g/dL (2.2-4.2); Glucose 103 mg/dL (70-99); Protein, Total 6.7 g/dL (5.9-8.4); Sodium Level 138 mmol/L (133-145); Total Bilirubin 0.42 mg/dL (0.00-1.30)
== END | disposition home or self-care (01) ==
LOC: LAB 13:52
PROVIDERS: PCP Family Medicine Geriatric Medicine; Referring Provider Family Medicine Geriatric Medicine; Visit Provider Family Medicine Geriatric Medicine
DX: E78.5 Hyperlipidemia, unspecified (principal); R53.83 Other fatigue
CPT/HCPCS: 36415; 80053; 80061; 84443; 85025

== ENCOUNTER → 2025-07-03 | Outpatient (CLI) | payer MEDICAID, SELFPAY ==
[2025-07-03 15:44] LABS: Hematocrit 38.9 % (37-47); Hemoglobin 13.6 g/dL (12.0-15.0); Immature Granulocytes Count 0.020 X10^3/uL (0.0-0.0); Mean Corp Hgb Conc 35.0 g/dL (32-36); Mean Corpuscular Volume 89.4 fL (81-99); Mean Platelet Vol. 10.3 fl (6.2-12.0); NRBC Flagged by Analyzer 0 % (0-5); Platelet Count 314 K/mm3 (150-450); RBC Distribution Width CV 12.7 % (11.6-14.6); RBC Distribution Width SD 41.2 fl (35.1-43.9); Red Blood Count 4.35 M/mm3 (4.2-5.4); White Blood Count 7.1 K/mm3 (4.4-11.0)
[2025-07-03 16:27] LABS: AST(SGOT) 19 U/L (<=31); Alanine Aminotransfer ALT/SGPT 26 U/L (<=34); Albumin, Serum 4.4 g/dL (3.4-4.8); Alkaline Phosphatase 126 U/L (35-104); Anion Gap 10 (5-15); BUN 12 mg/dL (4-19); BUN/Creat Ratio 11.6 RATIO (10-20); Calcium,Total 9.6 mg/dL (7.6-11.0); Carbon Dioxide 26.6 mmol/L (21.0-32.0); Chloride 102 mmol/L (98-108); Cholesterol 146 mg/dL (<=200); Globulin 2.5 g/dL (2.2-4.2); Glucose 98 mg/dL (70-99); Low Density Lipoprotein Calc. 76 mg/dL; Potassium 4.1 mmol/L (3.3-5.1); Triglycerides 133 mg/dL; Very Low Density Lipoprotein 27 mg/dL (5-40); cholesterol:hdl ratio screen 3.13
== END | disposition home or self-care (01) ==
LOC: LAB 14:36
PROVIDERS: PCP Family Medicine Geriatric Medicine; Referring Provider Family Medicine Geriatric Medicine; Visit Provider Family Medicine Geriatric Medicine
DX: I10 Essential (primary) hypertension (principal); E78.5 Hyperlipidemia, unspecified; E03.9 Hypothyroidism, unspecified
CPT/HCPCS: 36415; 80053; 80061; 84443; 85025